=== PATIENT | female | born 1935 | race Caucasian/White ===

== ENCOUNTER 2018-12-13 08:32 | Emergency (ER) | payer OTHER ==
[2018-12-13 08:54] VITALS: BP 100/59; PULSE 79; TEMP 97.8; BMI 20.9
--- NOTE | 2018-12-13 08:59 | PDOC ---
History of Present Illness - General History Source: Family Exam Limitations: Dementia <TeenaanyaTonya [email or web address] - Last Filed: 12/14/18 13:12> <Marck Saenz - Last Filed: 12/14/18 16:15> - General Chief Complaint: Injury Stated Complaint: PAIN/INJURY Time Seen by Provider: 12/13/18 08:47 Past History - Travel Traveled outside of the country in the last 30 days: No Close contact w/someone who was outside of country & ill: No - Past Medical History COPD: No Dementia: Yes Diabetes: Yes HTN: Yes - Psycho Social/Smoking Cessation Hx Smoking Status: No Smoking History: Never smoked Number of Cigarettes Smoked Daily: 0 <ScottTonya lemosecca - Last Filed: 12/14/18 13:12> <Marck Saenz - Last Filed: 12/14/18 16:15> - Past Medical History Allergies/Adverse Reactions: Allergies Allergy/AdvReac Type Severity Reaction Status Date / Time No Known Allergies Allergy Verified 12/13/18 08:38 Home Medications: Ambulatory Orders Aspirin 81 mg PO DAILY 12/13/18 Atorvastatin Ca [Lipitor] 80 mg PO HS 12/13/18 Docusate Sodium 100 mg PO DAILY 12/13/18 Lisinopril 5 mg PO DAILY 12/13/18 Meclizine HCl 25 mg PO DAILY 12/13/18 Mirtazapine 15 mg PO DAILY 12/13/18 Sitagliptin Phosphate [Januvia] 25 mg PO DAILY 12/13/18 Review of Systems - Review of Systems Able to Perform ROS?: No (dementia) Is the patient limited Mongolian proficient: No <ScottcaneloAlfreda - Last Filed: 12/14/18 13:12> *Physical Exam - Vital Signs Last Vital Signs Temp Pulse Resp BP Pulse Ox 97.8 F 79 18 100/59 L 12/13/18 08:33 12/13/18 08:33 12/13/18 08:33 12/13/18 08:33 - Physical Exam Comments: 12/13/18 09:41 GENERAL: Well developed, well nourished. Awake and alert. No acute distress. HEENT: Normocephalic, atraumatic. PERRLA, EOMI. No conjunctival pallor. Sclera are non- icteric. Moist mucous membranes. Oropharynx is clear. NECK: Supple. Full ROM. No JVD. Carotid pulses 2+ and symmetric, without bruits. No thyromegaly. No lymphadenopathy. CARDIOVASCULAR: Regular rate and rhythm. No murmurs, rubs, or gallops. Distal pulses are 2+ and symmetric. PULMONARY: No evidence of respiratory distress. Lungs clear to auscultation bilaterally. No wheezing, rales or rhonchi. ABDOMINAL: Soft. Non-tender. Non-distended. No rebound or guarding. No organomegaly. Normoactive bowel sounds. MUSCULOSKELETAL Tenderness to palpation of the hips bilaterally. Tenderness palpation of the low back paraspinous muscles L3-L5 bilaterally. Normal range of motion at all joints. No bony deformities or tenderness. No CVA tenderness. EXTREMITIES: No cyanosis. No clubbing. No edema. No calf tenderness. SKIN: Warm and dry. Normal capillary refill. No rashes. No jaundice. NEUROLOGICAL: Alert, awake, appropriate. Cranial nerves 2-12 intact. No deficits to light touch and temperature in face, upper extremities and lower extremities. No motor deficits in the in face, upper extremities and lower extremities. Normoreflexic in the upper and lower extremities. Normal speech. Toes are down- going bilaterally. Gait is normal without ataxia. PSYCHIATRIC: Cooperative. Good eye contact. Appropriate mood and affect. <Alfreda Lara - Last Filed: 12/14/18 13:12> - Vital Signs Last Vital Signs Temp Pulse Resp BP Pulse Ox 97.8 F 79 18 100/59 L 12/13/18 08:33 12/13/18 08:33 12/13/18 08:33 12/13/18 08:33 <Marck Saenz - Last Filed: 12/14/18 16:15> ED Treatment Course - LABORATORY CBC & Chemistry Diagram: 12/13/18 09:30 12/13/18 09:30 <Alfreda Lara - Last Filed: 12/14/18 13:12> - LABORATORY CBC & Chemistry Diagram: 12/13/18 09:30 12/13/18 09:30 - ADDITIONAL ORDERS Additional order review: 12/13/18 09:50 Urine Culture - Final Urine - Urine Clean Catch NO GROWTH OBTAINED 12/13/18 09:30 RBC 3.82 MCV 93.4 MCHC 33.0 RDW 14.3 MPV 7.4 L Neutrophils % 85.8 H D Lymphocytes % 7.6 L D Monocytes % 6.4 Eosinophils % 0.1 D Basophils % 0.1 - Medications Given in the ED: ED Medications Discontinued Medications Generic Name Dose Route Start Last Admin Trade Name Fly PRN Reason Stop Dose Admin Acetaminophen 1,000 mg 12/13/18 09:35 12/13/18 11:01 Ofirmev Injection - IVPB 12/13/18 09:36 Not Given ONCE ONE Acetaminophen 650 mg 12/13/18 11:01 12/13/18 11:10 Tylenol - PO 12/13/18 11:02 650 mg ONCE ONE Administration Sodium Chloride 500 ml 12/13/18 09:35 12/13/18 09:47 Normal Saline - IV 12/13/18 09:36 500 ml ONCE ONE Administration <LettyMarck hernandez - Last Filed: 12/14/18 16:15> Medical Decision Making - Medical Decision Making 12/13/18 09:50 The patient is an 83-year-old female with past medical history of non-insulin- dependent diabetes, vertigo, HLD, presents to the emergency department today after an unwitnessed fall at home. The patient lives with her daughter. Most of the history and review of systems is obtained from the daughter. The patient has dementia at baseline. The daughter states that this morning she was in bed when she heard a loud thump. She states she ran to the patient's room where she found her laying on her right side. She was unable to get the patient up off the floor. She is unsure if the patient passed out. She was acting like herself after falling. The daughter did notice that the patient was shaking. The daughter states that the patient had pneumonia approximately 2 weeks ago for which she was treated with antibiotics as an outpatient. A/P: Unwitnessed fall On exam patient has tenderness to palpation of the low back paraspinous muscles L3-L5 bilaterally. Negative straight leg raise testing bilaterally. Tenderness to palpation of the hips bilaterally. Lungs are clear to auscultation bilaterally Patient is unable to recall the events as to why she fell. She is now also complaining of a headache Broad work-up ordered including EKG, head CT, basic labs, fluids and ofirmev. X -rays of the hip and low back ordered. We will reevaluate 12/13/18 13:13 EKG: NSR, rate 81 BPM. Normal intervals and axis. No acute ST-T wave changes X-rays of the hips and low back shows no acute pathology CXR without acute chest pathology WBC elevated to 13. Urine negative. Electrolytes grossly normal. K+ was hemolyzed per the lab. Family refused a redraw. Head CT: Generalized volume loss. Moderate to marked ventricular dilatation mainly of the lateral and third ventricles with a relatively smaller fourth ventricle findings may be due to central atrophy. Cannot rule out aqueduct of Sylvius narrowing/stenosis. Otherwise no acute CT evidence of intracranial pathology. Given findings of head CT, possible that the dilated 3rd and lateral ventricles could be causing her imbalance. Cannot r/o normal pressure hydrocephalus. Per family, pt did not have this finding back in April I would like to admit the patient at this time for neurology evaluation and PT consult; however, family requesting to leave and take the patient to a neurologist as an outpatient as they do not want her to stay in a hospital so far from home ([place]). Explained to the family that they would have to leave AMA as we have not confirmed a diagnosis and the patient is at risk to fall again. Explained that if she were to fall again she could sustain injuries including but not limited to, broken bones, head bleed, lacerations, permanent disability or . Family understands these risks. The daughter signs the AMA form as the patient's health care proxy. <Alfreda Lara - Last Filed: 12/14/18 13:12> - Medical Decision Making 12/14/18 16:14 The patient was seen and evaluated in conjunction with [facility] Lara under my direct supervision, ancillary studies were reviewed. I agree with the plan as outlined by [facility] Lara . <Marck Saenz - Last Filed: 12/14/18 16:15> Discharge - Discharge Information Problems reviewed: Yes - Admission No <Alfreda Lara - Last Filed: 12/14/18 13:12> <Marck Saenz - Last Filed: 12/14/18 16:15> - Discharge Information Clinical Impression/Diagnosis: Left against medical advice Condition: Stable Disposition: HOME - Follow up/Referral Referrals: ON STAFF,NOT [Primary Care Provider] - Ilya Stewart MD [Staff Physician] - - Patient Discharge Instructions Additional Instructions: Oksana was evaluated for her falls today. It appears that she has dilated ventricles on her CT scan. You are leaving AGAINST MEDICAL ADVICE. We did want to admit her for evaluation of her falls and have her see neurology. Please see neurology as soon as possible. A referral has been provided for you. Have her see her primary care doctor tomorrow. Return to the ER for any new or worsening symptoms, increased falls, altered mental status or if she has any changes in her symptoms. - Post Discharge Activity
[2018-12-13] MEDS ORDERED: SODIUM CHLORIDE 0.9% 500 ML INFUS.BAG IV ONE (09:35)
[2018-12-13] MEDS ORDERED: ACETAMINOPHEN 1000 MG/100 ML VIAL (NON FORMULARY) IVPB ONE (09:35)
[2018-12-13 09:42] LABS: BASO % 0.1 % (0-2.0); EOS % 0.1 % (0-4.5); HEMATOCRIT 35.7 % (32.4-45.2); HEMOGLOBIN 11.8 GM/dL (10.7-15.3); LYMPH % 7.6 % (8-40); MCH 30.8 pg (25.7-33.7); MEAN CELL VOLUME 93.4 fl (80-96); MEAN PLT VOLUME 7.4 fl (7.5-11.1); MONO % 6.4 % (3.8-10.2); NEUT % 85.8 % (42.8-82.8); PLATELET COUNT 372 K/MM3 (134-434); RBC 3.82 M/mm3 (3.60-5.2); RDW 14.3 % (11.6-15.6); WHITE BLOOD COUNT 13.6 K/mm3 (4.0-10.0)
[2018-12-13] MEDS ORDERED: ACETAMINOPHEN 325 MG TABLET (FP) ONE (09:43)
[2018-12-13 09:54] LABS: INR 1.01 (0.83-1.09); PROTHROMBIN TIME (PATIENT) 11.9 SEC (9.7-13.0)
[2018-12-13 09:54] LABS: URINE APPEARANCE CLEAR; URINE BILIRUBIN NEGATIVE (NEGATIVE); URINE COLOR YELLOW; URINE GLUCOSE (UA) NEGATIVE (NEGATIVE); URINE KETONE NEGATIVE (NEGATIVE); URINE LEUK ESTERASE NEGATIVE (NEGATIVE); URINE NITRITE NEGATIVE (NEGATIVE); URINE PROTEIN NEGATIVE (NEGATIVE); URINE UROBILINOGEN 0.2 mg/dL (0.2-1.0)
[2018-12-13 10:33] LABS: ALBUMIN 3.3 g/dl (3.4-5.0); ALK PHOS 193 U/L (45-117); ANION GAP 7 MMOL/L (8-16); BILIRUBIN,TOTAL 0.6 mg/dL (0.2-1); BLOOD UREA NITROGEN 31.2 mg/dL (7-18); CALCIUM 9.6 mg/dL (8.5-10.1); CHLORIDE 102 mmol/L (98-107); CO2 26 mmol/L (21-32); GLUCOSE,RANDOM 202 mg/dL (74-106); SGOT/AST 65 U/L (15-37); SGPT/ALT 53 U/L (13-61); SODIUM 135 mmol/L (136-145); TOT PROT 7.8 g/dl (6.4-8.2)
[2018-12-13] MEDS ORDERED: ACETAMINOPHEN 325 MG TABLET (FP) PO ONE (11:01)
--- NOTE | 2018-12-14 10:08 | EKG ---
Test Reason : Blood Pressure : / mmHG Vent. Rate : 081 BPM Atrial Rate : 081 BPM P-R Int : 176 ms QRS Dur : 070 ms QT Int : 360 ms P-R-T Axes : 079 -19 -02 degrees QTc Int : 418 ms NORMAL SINUS RHYTHM NORMAL ECG NO PREVIOUS ECGS AVAILABLE Confirmed by JOSE A KINNEY MD ([id number]) on 12/14/2018 10:08:36 AM Referred By: Confirmed By:JOSE A KINNEY MD
== END 2018-12-13 14:53 | disposition home or self-care (01) ==
LOC: JER 08:32
PROC: 3E033NZ Introduction of Analgesics, Hypnotics, Sedatives into Peripheral Vein, Percutaneous Approach (ICD-10-PCS; principal; 2018-12-13)
DX: M54.5 Low back pain (principal); R51 Headache; W19.XXXA Unspecified fall, initial encounter; Y93.89 Activity, other specified; Y92.032 Bedroom in apartment as the place of occurrence of the external cause; Y99.8 Other external cause status; I10 Essential (primary) hypertension; E11.9 Type 2 diabetes mellitus without complications; Z79.84 Long term (current) use of oral hypoglycemic drugs; E78.5 Hyperlipidemia, unspecified; F03.90 Unspecified dementia, unspecified severity, without behavioral disturbance, psychotic disturbance, mood disturbance, and anxiety; Z79.82 Long term (current) use of aspirin
CPT/HCPCS: 36415; 70450-TC; 71046-TC-FY; 72100-TC-FY; 73523-TC-FY; 80053; 81003; 82550; 82553; 84484; 85025; 85610; 87086; 93005; 93010; 96374; 99283-25